=== PATIENT | male | born 1975 | race Caucasian/White ===

== ENCOUNTER 2016-12-31 15:37 | Emergency (ER) | payer BC, OTHER ==
[2016-12-31] MEDS ORDERED: FLUORESCEIN SODIUM 1 MG APP OD ONE (16:26)
[2016-12-31] MEDS ORDERED: PROPARACAINE 0.5% OPHTH SOLN 15 ML BOTTLE OD ONE (16:26)
[2016-12-31 16:30] VITALS: BMI 35.5
[2016-12-31 16:38] VITALS: BP 146/88; PULSE 70; TEMP 98
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
== END 2016-12-31 17:29 | disposition home or self-care (01) ==
LOC: EDMC 15:37
DX: S05.00XA Injury of conjunctiva and corneal abrasion without foreign body, unspecified eye, initial encounter (principal); W22.8XXA Striking against or struck by other objects, initial encounter; Y93.9 Activity, unspecified
CPT/HCPCS: 99282; J3490